=== PATIENT | male | born 1995 | race Caucasian/White ===

== ENCOUNTER 2019-08-25 21:28 | Emergency (ER) | payer BC, OTHER ==
[~2019-08-25] VITALS: Ht 165.1 cm; Wt 72.6 kg
[2019-08-25 21:30] VITALS: BP_SYST 137
--- NOTE | 2019-08-25 21:30 | NUR ---
Patient triaged and placed in waiting room. VSS and patient appears in no acute distress at this time. Accompanied by FAM MEMBER, awaiting available bed, and MD notified of need for MSE.
--- NOTE | 2019-08-25 23:54 | NUR ---
Patient to ER bed 2 to gown for evaluation. Side rails up. Report given to SPARKLE FELDMAN.
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
--- NOTE | 2019-08-26 00:20 | NUR ---
ER Dr. MEDELLIN at bedside examining patient.
--- NOTE | 2019-08-26 00:22 | NUR ---
radiology at bedside.
[2019-08-26] MEDS ORDERED: KETOROLAC TROMETHAMINE 60 MG/2 ML VIAL IM ONE (00:30)
--- NOTE | 2019-08-26 00:40 | NUR ---
# 18 gauge angiocath placed to R forearm. Use of asceptic technique. Opsite placed over site. Blood return noted. Flushed with 10 cc of normal saline. No evidence of infiltration noted. Patient tolerated well.
--- NOTE | 2019-08-26 00:50 | NUR ---
Pt off floor with sterile instrument technician via [place] in stable condition for CT with contrast.
[2019-08-26] MEDS ORDERED: HYDROcodone/ACETAMIN 10-325 MG TAB PO ONE (01:00)
[2019-08-26] MEDS ORDERED: IOHEXOL 100 ML IV ONE (01:24)
--- NOTE | 2019-08-26 01:56 | NUR ---
Pt in bed sleeping with no complaints. Will continue to monitor.
--- NOTE | 2019-08-26 02:36 | NUR ---
Note agustin in ED - 08/26/19 at 0240 by TRICIA Pt sleeping in bed with no complaints.
--- NOTE | 2019-08-26 02:39 | NUR ---
ER Dr. Khan at bedside explaining results to patient.
[2019-08-26] MEDS ORDERED: HYDROcodone/ACETAMIN 5-325 MG TAB (NORCO/ VICODIN) PO ONE (02:45)
[2019-08-26] MEDS ORDERED: DIPH-TET-PERTUS Vaccine 0.5 ML VIAL (ADACEL) I.M. ONE (03:00)
[2019-08-26 03:29] VITALS: BP_SYST 124
--- NOTE | 2019-08-26 03:29 | NUR ---
Patient given written and verbal discharge instructions and verbalizes understanding. ER MD Khan discussed with patient the results and treatment provided. Patient in stable condition. ID arm band removed. IV catheter removed intact and dressing applied, no active bleeding. Rx of naprosyn and flexeril given. Patient educated on pain management and to follow up with PMD. Pain Scale 2/10. Opportunity for questions provided and answered. Medication side effect fact sheet provided.
== END 2019-08-26 03:29 | disposition home or self-care (01) ==
LOC: SED 21:28
DX: S22.31XA Fracture of one rib, right side, initial encounter for closed fracture (principal); S22.32XA Fracture of one rib, left side, initial encounter for closed fracture; S42.002A Fracture of unspecified part of left clavicle, initial encounter for closed fracture; V28.4XXA Motorcycle driver injured in noncollision transport accident in traffic accident, initial encounter; Y93.89 Activity, other specified; Y92.411 Interstate highway as the place of occurrence of the external cause; Y99.8 Other external cause status
CPT/HCPCS: 70450; 71045; 71110; 71260; 72125; 72128; 72131; 73030; 90471; 90715; 96372; 99284; J1885; Q9967